=== PATIENT | female | born 2000 | race Hispanic/Latino ===

== ENCOUNTER 2022-06-04 16:22 | Emergency (ER) | payer OTHER, SELFPAY ==
[2022-06-04] MEDS ORDERED: Triple Antibiotic Oint 1 GM Packet ONE (17:11)
== END 2022-06-04 17:10 | disposition home or self-care (01) ==
LOC: CSHERS 16:22
DX: L03.011 Cellulitis of right finger (principal); J06.9 Acute upper respiratory infection, unspecified
CPT/HCPCS: 99283